=== PATIENT | male | born 1960 | race Caucasian/White ===

== ENCOUNTER 2016-09-29 07:02 | Observation (INO) | payer OTHER ==
--- NOTE | ~2016-09-29 | OP ---
Record Of Operation [facility] [address] [place]. [address] NAME: HEAD,GABRIELA HARRINGTON : 58 STATUS : ADM Ashley PAT#: [id number] AGE: 55 ADM/REG DATE : 09/29/16 MR#: [id number] REPORT SERV DATE: 09/30/16 DICTATED BY: UMU PRUETT DATE: 09/29/16 REPORT STATUS : Draft TRANSCRIBED BY: MODL DATE: 09/29/16 DATE OF PROCEDURE: 09/29/2016 CARDIAC CATHETERIZATION REPORT REFERRING PHYSICIAN: Dr. Chio Granado. INDICATION: Chest pain with multiple risk factors, coronary artery disease, and abnormal stress test. PROCEDURE: Left heart catheterization, coronary arteriography, left ventriculography, PCI/stent of proximal/mid LAD. DESCRIPTION OF PROCEDURE: After informed consent was obtained, the patient was taken in the fasting state to the cardiac catheterization laboratory where he was prepped and draped in a sterile fashion. Conscious sedation was obtained using intravenous Versed and fentanyl. The right inguinal region was anesthetized using 1% Xylocaine. The right femoral artery was then entered using front wall approach and cannulated with a 6-Estonian arterial sheath. A 6- Estonian JL4 diagnostic catheter was then used to engage the left main coronary artery. Serial angiograms were obtained. A 6-Estonian Felipe right catheter was used to engage the right coronary artery. Serial angiograms of this vessel were obtained. This catheter was then exchanged for a 6-Estonian angled pigtail catheter which was used across the aortic valve at which time a left ventriculogram was performed. The catheter was then withdrawn back across the aortic valve with no significant aortic transvalvular gradient. Results of the study are as follows: HEMODYNAMICS: Aorta 100/56 with a mean pressure of 73 mmHg. Left ventricle 101/4 with end- diastolic pressure of 12 mmHg. CORONARY ANATOMY: Left Main coronary artery: The left main coronary artery arises normally from the left coronary cusp. This is a large caliber vessel which appears normal. Left anterior descending artery: The left anterior descending artery arises normally from the left main coronary artery. This vessel gives off a small high first diagonal branch which has a 50% proximal stenosis. Immediately after the takeoff of a large septal supervisory air intercept controller is a diffusely diseased segment of 80% to 90% which extends down to the takeoff of the second diagonal branch which is mid vessel. Left circumflex artery: The left circumflex artery arises normally from the left main coronary artery. This is a large dominant vessel which has luminal regularities of less than 20%. Right coronary artery: The right coronary artery arises normally from the right coronary cusp. This vessel is nondominant. This vessel is normal. Left Ventriculogram: Record Of Operation [facility] [place]. [address] NAME: HEAD,GABRIELA HARRINGTON : 58 STATUS : ADM Ashley PAT#: [id number] AGE: 55 ADM/REG DATE : 09/29/16 MR#: [id number] REPORT SERV DATE: 09/30/16 DICTATED BY: UMU PRUETT DATE: 09/29/16 REPORT STATUS : Draft TRANSCRIBED BY: DANIEL DATE: 09/29/16 The left ventriculogram was performed which shows normal symmetric left ventricular contractility and an ejection fraction of 55%. There was no mitral insufficiency. After the above findings, it was decided to proceed with PCI and stenting of the proximal/mid LAD stenosis. A 6-Estonian JL4 guiding catheter was introduced but did not provide adequate engagement. It was exchanged for a 6-Estonian Q3.5 guiding catheter which provided adequate support. The [employer] PT 0.014 x 182 cm extra support wire was then used to cross the lesion. A [employer] Synergy 3.0 x 20 mm drug-eluting stent was then introduced and carefully positioned just past the takeoff of the large first septal supervisory air intercept controller. It was then deployed using 11 atmospheres for 20 seconds. Additional inflations performed at 16 atmospheres for 30 seconds. Repeat angiography revealed a 0% residual stenosis with no dissection, flap, thrombus, embolization, or occlusion apparent. COMPLICATIONS: There were no apparent complications. CONCLUSIONS: 1. Multivessel coronary artery disease as described above. Flow-limiting disease of the proximal/mid LAD. 2. Normal left ventricular systolic function without mitral insufficiency. 3. Successful PCI/stent to the proximal/mid LAD using [employer] Synergy 3.0 x 20 mm drug-eluting stent. 4. No apparent complications. /DANIEL Umu Pruett M.D., [facility] / [id number] CC: Umu Pruett M.D., [facility] Chio Granado M.D.
[~2016-09-29 07:02] MED LIST: ASAB PO; MULTIPLE VIT PO; VITAMIN D31000 UNIT PO; ZOCOR40 PO
[2016-09-29 08:10] LABS: BASOPHILS 0.4 %; BASOPHILS ABSOLUTE 0.03 10/3/uL (0.0-0.16); EOSINOPHILS 2.7 %; EOSINOPHILS ABSOLUTE 0.22 10/3/uL (0.0-0.53); HEMATOCRIT 43.9 % (40.0-51.0); HEMOGLOBIN 14.9 g/dL (13.6-17.8); IMMATURE GRANULOCYTES 0.4 %; IMMATURE GRANULOCYTES ABSOLUTE 0.03 10/3/uL (0.0-0.11); LYMPHOCYTES 25.2 %; LYMPHOCYTES ABSOLUTE 2.06 10/3/uL (0.67-4.30); MEAN CORPUS HGB CONC 33.9 g/dL (32.0-36.0); MEAN CORPUSCULAR HEMOGLOB 31.6 pg (26.0-34.0); MEAN CORPUSCULAR VOLUME 93.2 fL (80-100); MEAN PLATELET VOLUME 10.2 fL (9.2-13.0); MONOCYTES 9.7 %; MONOCYTES ABSOLUTE 0.79 10/3/uL (0.21-1.20); NEUTROPHILS 61.6 %; NEUTROPHILS ABSOLUTE 5.04 10/3/uL (2.02-8.40); PLATELET COUNT 256 10/3/uL (150-400); RBC DISTRIBUTION WIDTH 13.2 % (12.0-16.0); RED CELL COUNT 4.71 10/6/uL (4.7-6.1); WHITE BLOOD CELLS 8.2 10/3/uL (4.5-10.5)
[2016-09-29 08:13] LABS: MANUAL DIFF NO %
[2016-09-29 08:20] LABS: BUN (BLOOD UREA NITROGEN) 14 MG/DL (6-23); CALCIUM, SERUM 8.8 MG/DL (8.5-10.4); CHLORIDE, SERUM 104 MMOL/L (96-112); CHOL/HDL RATIO(NOT ORDER) 3.5 (0-5); CHOLESTEROL 177 MG/DL (< 200); CO2 (CARBON DIOXIDE) 28 MMOL/L (24-34); CREATININE 1.06 MG/DL (0.70-1.30); GFR AFRICAN AMERICAN 90 ML/MIN (>=60); GFR NON AFRICAN AMERICAN 78 ML/MIN (>=60); GLUCOSE, SERUM 98 MG/DL (60-99); HDL CHOLESTEROL 50 MG/DL (> 39); LDL CHOLESTEROL 98 MG/DL (< 130); NON-HDL CHOLESTEROL 127 MG/DL (< 160); POTASSIUM, SERUM 3.7 MMOL/L (3.5-5.3); SODIUM, SERUM 139 MMOL/L (135-148); TRIGLYCERIDE 145 MG/DL (< 150)
[2016-09-29] MEDS ORDERED: BRILINTA90 MG PO (11:06)
== END 2016-09-30 07:14 | disposition home or self-care (01) ==
LOC: CORLMH 07:02 → SSU1 07:14
PROVIDERS: Internal Medicine Interventional Cardiology
PROC: 4A023N7 Measurement of Cardiac Sampling and Pressure, Left Heart, Percutaneous Approach (ICD-10-PCS; principal; 2016-09-30)
PROC: B201YZZ Plain Radiography of Multiple Coronary Arteries using Other Contrast (ICD-10-PCS; 2016-09-30)
PROC: B205YZZ Plain Radiography of Left Heart using Other Contrast (ICD-10-PCS; 2016-09-30)
PROC: 02703DZ Dilation of Coronary Artery, One Artery with Intraluminal Device, Percutaneous Approach (ICD-10-PCS; 2016-09-30)
DX: I25.10 Atherosclerotic heart disease of native coronary artery without angina pectoris (principal); F41.0 Panic disorder [episodic paroxysmal anxiety]; E78.5 Hyperlipidemia, unspecified; Z98.890 Other specified postprocedural states; Z82.49 Family history of ischemic heart disease and other diseases of the circulatory system; Z79.01 Long term (current) use of anticoagulants; Z79.82 Long term (current) use of aspirin; Z79.899 Other long term (current) drug therapy
CPT/HCPCS: 80048; 80061; 85025; 85347; 93005; 93458; 96374; 96376; 99152; 99153; A9270-GY; C1769; C1874; C1887; C1894; C9600; G0378; J2250; J3010; Q9967